=== PATIENT | male | born 1960 | race Caucasian/White ===

== ENCOUNTER 2022-03-19 14:40 | Outpatient (CLI) | payer BC, SELFPAY | END 2022-03-19 14:41 | disposition home or self-care (01) | LOC: AMB 04-21 14:23 | PROVIDERS: PCP Family Medicine; Visit Provider Family Medicine | DX: R41.82 Altered mental status, unspecified (principal); T63.441A Toxic effect of venom of bees, accidental (unintentional), initial encounter; Y92.007 Garden or yard of unspecified non-institutional (private) residence as the place of occurrence of the external cause | CPT/HCPCS: A0425; A0427 ==

== ENCOUNTER 2022-03-19 15:05 | Emergency (ER) | payer BC, SELFPAY ==
[2022-03-19] VITALS (8 sets, daily range): BP systolic 110–131; BP diastolic 74–88; PULSE 22–93; RESP 18–24; TEMP 36.7; O2SAT 93–100; BMI 24.0
--- NOTE | 2022-03-19 15:24 | ED_ITS ---
HPI - General Adult General Date Seen: 03/19/22 Chief complaint: Allergic Reaction Stated complaint: Allergic Reaction Time Seen by Provider: 03/19/22 15:08 Source: patient and EMS History of Present Illness HPI narrative: Patient is a 61-year-old male who was outside working when he was stung by a stinging insect of some kind, he thought it looked like a small be but it may have been a wasp. He was stung 2 or 3 times. Says he was stung by a bee a few weeks ago and did not have any problems, he has been stung multiple times over the course of his life and has never had any symptoms. Today however, he started to feel very lightheaded, he says he passed out for about 4 minutes, came to and called EMS. They report on their arrival he had a blood pressure of around 100 systolic. They gave him Benadryl initially, reported no wheezing, facial swelling, or rashes at that time. Then he started to feel nauseated, so they gave him epinephrine. Following that, on arrival here he is noted to have facial flushing and erythema underneath his armpits. He denies any itching at any time, has not had shortness of breath. He does continue to feel nauseated. He has not had any vomiting or diarrhea. Denies abdominal pain. Does not have any chest pain or palpitations. Denies any medical history, only medication is a baby aspirin daily. Does smoke cigarettes, occasional alcohol. Related Data Home Medications Medication Instructions Recorded Confirmed aspirin 81 mg capsule 81 mg PO DAILY 03/19/22 03/19/22 Previous Rx's Medication Instructions Recorded cetirizine 10 mg tablet 10 mg PO DAILY #10 tabs 03/19/22 epinephrine 0.3 mg/0.3 mL 0.3 mg (0.3 mL) IM Q5-15M PRN #2 ea 03/19/22 injection, auto-injector (EpiPen 2-Jaya) Allergies Allergy/AdvReac Type Severity Reaction Status Date / Time venom-honey bee Allergy Verified 03/19/22 15:20 Review of Systems Status of ROS: Reports: 10 or more systems reviewed and unremarkable except as noted in History and below PFSH PFSH Social History Smoking Status: Current every day smoker What tobacco products do you use: cigarettes Do you use any of these nicotine containing products: None Second hand tobacco smoke exposure: No How often do you have a drink containing alcohol: 4 or more times a week How many standard drinks containing alcohol do you have on a typical day: 3 or 4 How often do you have six or more drinks on one occasion: Monthly AUDIT-C Alcohol total score: 7 Non-prescribed substance use: denies use Exam Narrative: Exam Narrative: Vital signs as noted above. In general, an alert, nontoxic male, breathing easily. Head: Normocephalic, atraumatic. Eyes: Pupils are equal reactive. Extraocular movements are full. Conjunctivae are injected bilaterally. ENT: Mucous membranes are moist. Throat is normal without edema, palate is erythematous. Neck: Supple without lymphadenopathy. No stridor or masses. Heart: Regular rate and rhythm. No murmur or rub. Lungs: Clear bilaterally. No increased work of breathing, crackles or wheezes. Abdomen: Soft and nontender. No organomegaly. Extremities: Well perfused. No edema. No calf tenderness. Pulses intact. Neurologic: Patient is alert and oriented to person and place. Speech is fluent. Face is symmetric. Moves all extremities equally. Affect: Normal. Skin: Warm and dry. Well perfused. He has an is brightly erythematous rash noted underneath both armpits which becomes punctated around the edges. He does not have any hives. His face is flushed. No other rashes at this time. Const: Vital Signs, click to edit/add: Vital Signs - 24 hr 03/19/22 15:07 03/19/22 15:15 03/19/22 15:37 Temperature 98.0 F Pulse Rate [Left P ulse Oximeter] 81 80 Respiratory Rate 18 22 Blood Pressure [Le ft Upper Arm] 131/88 122/80 Pulse Oximetry 96 94 96 Oxygen Delivery Me thod Room Air Room Air 03/19/22 16:35 Temperature Pulse Rate [Left P ulse Oximeter] 82 Respiratory Rate 20 Blood Pressure [Le ft Upper Arm] 119/77 Pulse Oximetry 94 Oxygen Delivery Me thod Room Air Documenting provider has reviewed patient's vital signs: yes Course Course Hospital Course: Patient was maintained on the monitor technician and pulse oximetry. He did not have any evidence of hypoxia or tachycardia. Blood pressure remains stable. He had an EKG which by my review showed a normal sinus rhythm, ventricular rate of 81 beats per minute. It is unclear whether he had a vasovagal episode at home or whether his syncope may have been more related to an allergic reaction, the fact that his blood pressure rebounded without treatment suggest more of a vagal type response. He does clearly have a skin reaction here today which suggests more of a systemic type reaction, but he is not showing hives, wheezing, or evidence of circulatory collapse here. He had Zofran EN route by paramedics. Continued to complain of some nausea here, but requested water as he thought that might help his stomach settle. For now have held off on further antiemetics. I did give Solu-Medrol 125 mg IV. Plan for now will be observation for the next few hours for progressive or worsening symptoms. Reevaluation(s) Reevaluation #1: Recheck at 5:00 p.m., patient was sleeping, blood pressure and pulse were normal. Time: 18:38 Reevaluation #3: Patient feeling well, eager to go home. Blood pressure and pulse, O2 sats all normal. Lungs clear. He continues to have erythema along his belt line, in his axilla it has improved although not completely gone. No hives. I am going to send him home on antihistamines and prednisone, will give him an EpiPen as well. Primary care follow-up next week. Return for any acute worsening, respiratory difficulties, vomiting, or other acute symptoms. Vital Signs Vital signs: Initial Vital Signs Temperature 98.0 F 03/19/22 15:07 Temperature Source Temporal Artery Scan 03/19/22 15:07 Pulse Rate 81 03/19/22 15:07 Respiratory Rate 18 03/19/22 15:07 Blood Pressure 131/88 03/19/22 15:07 Blood Pressure Mean 102 03/19/22 15:07 Blood Pressure Position Sitting 03/19/22 15:07 Pulse Oximetry 96 03/19/22 15:07 Oxygen Delivery Method 03/19/22 15:07 Vital Signs Temperature 98.0 F 03/19/22 15:07 Pulse Rate 81 03/19/22 15:07 Respiratory Rate 18 03/19/22 15:07 Blood Pressure 131/88 03/19/22 15:07 Pulse Oximetry 96 03/19/22 15:07 Oxygen Delivery Method 03/19/22 15:07 Temperature 98.0 F 03/19/22 15:07 Pulse Rate 92 03/19/22 18:30 Respiratory Rate 19 03/19/22 18:30 Blood Pressure 115/77 03/19/22 18:30 Pulse Oximetry 100 03/19/22 18:30 Oxygen Delivery Method 03/19/22 18:30 Discharge Plan Discharge Clinical Impression: Allergic reaction Patient Disposition: Home, Self-Care Condition: Improved Instructions: General Allergic Reaction (ED) Additional Instructions: Cetirizine, prednisone as prescribed. Return for shortness of breath, swelling, vomiting or other acute worsening. Follow up with primary care next week. EpiPen if needed as discussed. Prescriptions: New cetirizine 10 mg tablet 10 mg PO DAILY Qty: 10 0RF epinephrine [EpiPen 2-Jaay] 0.3 mg/0.3 mL auto-injector 0.3 mg IM Q5-15M PRNQty: 2 0RF Rx Instructions: do not exceed 3 doses per episode No Action aspirin 81 mg capsule 81 mg PO DAILY Follow Up/Referrals: Quinn Ashraf MD [Primary Care Provider] - Stand Alone Forms: [employer] Info Instructions
[2022-03-19] MEDS: METHYLPREDNISOLONE SOD SUCC 62.5 MG/ML (125) 125 MG IVP (15:30)
[2022-03-19] MEDS: METOCLOPRAMIDE HCL 10 MG in 0.9 % SODIUM CHLORIDE 100 ml 100 ML 306 MG IVPB (16:34)
[2022-03-19] MEDS: CETIRIZINE HCL 10 MG TABLET PO (18:58)
== END 2022-03-19 19:00 | disposition home or self-care (01) ==
PROVIDERS: Emergency Provider Emergency Medicine; PCP Family Medicine
DX: T63.481A Toxic effect of venom of other arthropod, accidental (unintentional), initial encounter (principal)
CPT/HCPCS: 93005; 94761; 96365; 96375; 99284; 99285; A9270; J2765; J2930

== ENCOUNTER 2022-10-07 14:45 | Outpatient (RCR) | payer OTHER, SELFPAY ==
--- NOTE | 2022-09-19 14:52 | PT.OPDNX ---
PT [facility] Daily Note PT [facility] Daily Note Start: 08/25/22 13:03 Freq: Status: Active Protocol: Document 09/19/22 13:43 [place] (Rec: 09/19/22 14:46 [place] Laptop) E-signed By Karla Lebron, PT PT OP Daily Progress Note Visit Information Note Type Daily Note Visit Number 4 Insurance Authorized Visits 24 visits until 01/20/23 Insurance Information Insurance Name [employer] Comp Medical Diagnosis chronic R shoulder pain Treating Diagnosis right shoulder pain, muscle weakness Referring MD geo khanna Subjective Subjective PATIENT RETURNS TODAY WITH C/O SORENESS BUT REPORTS, I JUST DO WHAT I GOT TO DO TO GET IT IN SHAPE. Pain Comments 2-09/02 Precautions Treatment Precautions/Contraindications no lifting overhead, lifting no more than #10,no pushing, pulling, -at work Objective Other/Pertinent Objective SHOULDER AROM Flexion: R 128 with pain L WNL Abduction: R93 with pain L WNL Internal Rotation: R L3 with pain L T7 External Rotation: R73 LWNL NECK/SHOULDER MMT: Shoulder shrug: R 4/5 L 5/5 Shoulder flexion: R 4-/5 L 5/5 Shoulder abduction: R 3-/5 L 5 /5 Shoulder External Rotation: R4 - /5 L5 /5 Shoulder Internal Rotation: R 4/5 L 5/5 Elbow flexion: R 4/5 L 5/5 Elbow extension R 4+/5 L 5/5 SPECIAL TEST Shoulder impingement HawShubham Test: + R Neer Test: +R Horizontal Adduction Test: +R Painful arc 60-120 scaption: + R Rotator cuff tendonitis Speeds test(biceps): -R Empty can(Supra): + R JOINT MOBILITY/PALPATION increased pain with long head biceps tendon and supraspinatus Patient Instructed in Risks/Benefits Yes Therapeutic Exercise Therapeutic Exercise Minutes (minutes) 45 Therapeutic Exercise: To Restore UBE 5MIN (2.5FWD/2.5BKWD) Functional Status STDG TB ROW (BLUE) X 15 STDG TB S'EXT (BLUE) X 15 STDG TB ER (GREEN) X 20 PRONE ROW X15 10# PRONE S'EXT X 15 8# PRONE H'ABD X 10 3# PRONE SCAPTION X 10 3# STDG PNF D2 FLEX/EXT CC 1.5 PLATES X 10 EA SUPINE STATIC STABILIZATION WITH PROXIMAL TO DISTAL MULTIDIRECTIONAL PERT 4 POS Manual Therapy Techniques Manual Therapy Minutes (minutes) 8 Manual Therapy Techniques PROM ALL DIRECTIONS Treatment Minutes Timed Code Treatment Minutes 53 Total Treatment Time 53 Billing Units Manual Therapy Units 1 Therapeutic Exercise Units 3 Assessment/Impression Assessment/Impression PATIENT RETURNS WITH REPORTS OF DOING REALLY GOOD AND FEEL LIKE I'M GETTING STRONGER. HE HAS IMPROVED SIGNIFICANTLY FROM HIS FIRST VISIT (4VISITS) BOTH IN ROM WELL STRENGTH BUT HIS DYNAMIC STABILIZATION IS STILL IN DEFICIT EVIDENCED BY PAIN POSTERIORLY WITH PNF WELL RESISTED MOTION WITH WEIGHT AWAY FROM BODY. HIS MOTION HAS IMPROVED FROM 128 TO 176 DEGREES S'FLEX, FROM 93 TO 172 S'ABD, AND FROM IR AT L3 TO T6; HIS STRENGTH IMPROVED FROM S'FLEX 4- TO 4+/5, FROM S 'ABD 3- TO 4+/5, FROM S'ER 4- TO 4+/5, FROM S'IR 4 TO 5/5. 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 HE WILL SEE ME ON Monday09/23/22 AND THEN F/U WITH THE ORTHO ON 09/30 TO DETERMINE WHETHER HE NEEDS TO CONTINUE WITH SKILLED PHYSICAL THERAPY OR DISCHARGE BACK TO WORK W/O RESTRICTIONS . HE WOULD BENEFIT FROM 1X/WK FOR AN ADDITIONALY 4 WEEKS TO ADDRESS HIS DYNAMIC STABILITY AT THE SHOULDER AND WORK SPECIFIC CHALLENGES ONCE HIS RESTRICTIONS HAVE BEEN LIFTED. NEXT VISIT BEGIN LIFTING FROM GROUND TO COUNTER, AND COUNTER PUSH/PULL MANEUVERS. 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 Pt will be independent with HEP within 12 weeks to allow for independence and continued improvement past formal therapy
== END 2022-10-07 15:17 | disposition home or self-care (01) ==
PROVIDERS: PCP Family Medicine; Visit Provider Family Medicine
DX: M25.511 Pain in right shoulder (principal); G89.29 Other chronic pain; M62.81 Muscle weakness (generalized); Z51.89 Encounter for other specified aftercare
CPT/HCPCS: 97110; 97140; 97161